=== PATIENT | male | born 1955 | race Caucasian/White ===

== ENCOUNTER 2018-10-19 08:31 | Emergency (ER) | payer OTHER ==
[2018-10-19] MEDS ORDERED: cefTRIAXone\\ROCEPHIN 1 GM VIAL ONE (09:19)
[2018-10-19] MEDS ORDERED: Lidocaine 1% PF 5 ML VIAL ONE (09:19)
--- NOTE | 2018-10-19 09:25 | RAD ---
EXAM: CHEST TWO VIEWS: History: Cough. FINDINGS: 0.7 cm diameter somewhat poorly defined nodular density demonstrated over the lower mid right lung zo ne seen on the PA view only. Minimal patchy parenchymal changes seen in the retrocardiac region and l eft lower lobe, evidence for left lower lobe pneumonia. Old granulomatous disease. Heart size is norm al. IMPRESSION: Evidence for patchy left lower lobe pneumonia. Poorly defined 0.7 cm diameter nodular density seen in the right mid lower lung zone. Non-emergent follow up chest CT scan in this regard might be of benef it. Code Lung Nodule
== END 2018-10-19 09:54 | disposition home or self-care (01) ==
LOC: SCSER 08:31
DX: J18.1 Lobar pneumonia, unspecified organism (principal); R91.1 Solitary pulmonary nodule; E11.9 Type 2 diabetes mellitus without complications; I10 Essential (primary) hypertension
CPT/HCPCS: 71046; 93005; 94760; 96372; J0696; J2001

== ENCOUNTER 2019-11-24 06:33 | Outpatient (CLI) | payer OTHER ==
[2019-11-24 14:14] LABS: INR-International Normal Ratio 2.7; Prothrombin Time 28.7 sec (12.0-14.7)
[2019-11-24 14:22] LABS: Hemoglobin 14.2 g/dL (14.0-18.0); Mean Corpuscular Hemoglobin 30.3 pg (27.0-31.0); Mean Corpuscular Volume 89.2 fL (78.0-98.0); Platelet Count 251 thou/uL (130-400); RBC Distribution Width 11.4 % (11.5-14.5); Red Blood Cell (RBC) Count 4.68 mill/uL (4.70-6.10); White Blood Cell (WBC) Count 6.9 thou/uL (4.8-10.8)
[2019-11-24 14:44] LABS: Anion Gap 13 mmol/L (10-20); BUN (Urea Nitrogen) 19 mg/dL (8.4-25.7); Calc. Creatinine Clearance 0 mL/min (70-130); Calcium 8.9 mg/dL (7.8-10.44); Carbon Dioxide 22 mmol/L (23-31); Chloride 107 mmol/L (98-107); Estimated GFR-MDRD 54; Glucose 127 mg/dL (80-115); Sodium 138 mmol/L (136-145)
[2019-11-25 14:25] LABS: SARS-CoV-2 MS2 Positive; SARS-CoV-2 N Gene Negative; SARS-CoV-2 S Gene Negative; SARS-CoV-2 orf1ab Negative
== END 2019-11-24 06:34 | disposition home or self-care (01) ==
LOC: LABBT 06:33
PROVIDERS: ATTEND Internal Medicine Cardiovascular Disease
DX: Z01.812 Encounter for preprocedural laboratory examination (principal); Z11.59 Encounter for screening for other viral diseases; I48.91 Unspecified atrial fibrillation; I51.9 Heart disease, unspecified; Z79.01 Long term (current) use of anticoagulants
CPT/HCPCS: 80048; 85027; 85610; 85730; 87635; U0003

== ENCOUNTER 2019-11-28 08:06 | Observation (INO) | payer OTHER ==
[2019-11-23 10:38] VITALS: BMI 27.7
[2019-11-28] MEDS ORDERED: Heparin 10,000 UNITS/1 ML VIAL ONE ×2 (10:37→14:26)
[2019-11-28] MEDS ORDERED: Fentanyl 100 MCG/2 ML VIAL ONE ×2 (10:38→11:20)
[2019-11-28] MEDS ORDERED: Protamine Sulfate 50 MG/5 ML VIAL ONE ×3 (10:48→15:03)
[2019-11-28] MEDS ORDERED: Phenylephrine 10 MG/ML VIAL ONE (11:21)
[2019-11-28] MEDS ORDERED: Glycopyrrolate 0.2 MG/ML 5 ML SYRINGE ONE (12:09)
[2019-11-28] MEDS ORDERED: Lidocaine 1% PF 5 ML VIAL ONE (12:09)
[2019-11-28] MEDS ORDERED: PROPOFOL 200 MG/20 ML VIAL ONE (12:09)
[2019-11-28] MEDS ORDERED: Rocuronium Bromide 10 MG/ML (10ML VIAL) ONE (12:09)
[2019-11-28] MEDS ORDERED: Isoproterenol 0.2 MG/1 ML AMP ONE (12:21)
[2019-11-28] MEDS ORDERED: Heparin 25,000 units/D5W 500 ML ONE (13:32)
[2019-11-28] MEDS ORDERED: Ketorolac Tromethamine 30 MG/ML VIAL IVP PRN (15:26)
[2019-11-28] MEDS ORDERED: Lisinopril 10 MG TAB PO SCH (15:30)
[2019-11-28] MEDS ORDERED: Ketorolac Tromethamine 30 MG/ML VIAL ONE (15:33)
[2019-11-28] MEDS ORDERED: Ondansetron PF 4 MG/2 ML Vial ONE (15:33)
[2019-11-28] MEDS ORDERED: Ondansetron HCl/PF 4 MG/2 ML Vial IVP PRN (15:52)
[2019-11-28] MEDS ORDERED: Promethazine HCl 25 MG/ML VIAL IM PRN (15:52)
[2019-11-28] MEDS ORDERED: Promethazine HCl 25 MG/ML VIAL SLOW IVP PRN (15:52)
--- NOTE | 2019-11-28 17:11 | OP ---
DATE OF PROCEDURE: 11/28/2019 PROCEDURES PERFORMED: Electrophysiology study and radiofrequency ablation. REFERRING PHYSICIANS: Dr. Ortega, primary care physician, as well as the primary terrazzo polisher, Dr. Kelli Daily. REASON FOR PROCEDURE: Mr. Stewart is a 64-year-old man with history of paroxysmal atrial fibrillation with suppression with flecainide, requiring increasing dosages and despite has recurrences. He has increasing bradycardia with increased flecainide. Here for pulmonary venous isolation procedure. The patient has been well anticoagulated with Xarelto over a month. DESCRIPTION OF PROCEDURE: The patient received general anesthesia by Anesthesia specialist. The left and right femoral venous area was prepped, draped, and accessed using a multipurpose needle under ultrasound guidance. On the left side, an 11-Yakut sheath was used to advance an intracardiac echocardiogram probe, which in turn used to monitor transseptal procedure, the catheter manipulation and pericardial space throughout the case. Also on the left side, a Preface sheath was used to advance a 20-pole Duo-Deca catheter into the right atrium and CS position. On the right side, initially two 8-Yakut short sheaths were introduced, through which a ThermoCool SFST catheter was advanced to the right atrium and 3D map of the right atrium was obtained, delineating the His bundle and CS positions. Following that, IV heparin was initiated with a bolus and drip fashion, which were adjusted periodically to keep ACT over 350. The short sheath from the right femoral vein was exchanged to two SL1 transseptal sheaths, which were used to perform transseptal puncture x2 with ultrasound guidance with the help for powered Ware needle. Through the SL1 sheaths, a ThermoCool SFST ablation catheter as well as 20-pole Lasso catheter advanced to the left atrium. 3D map of the left atrium was obtained. Left superior and inferior veins, right superior and inferior veins were noted and they were isolated with a standard antral isolation technique. Also, superior and inferior ablation lines were drawn to isolate the posterior wall. Throughout the posterior wall harding, special attention was paid to the esophageal temperatures to avoid excessive heating and any mild heating was met with extra high-flow irrigation at that spot. At the end of the case, whole these structures were isolated. The catheter advanced into the LV and ventricular pacing was performed to establish VA Wenckebach. It was 580 milliseconds. Antegrade Wenckebach was 360 milliseconds. The baseline cycle length was 766 milliseconds, WV 148 milliseconds, QRS 114, milliseconds QT 390 milliseconds, AH 95 milliseconds, HV 48 milliseconds noted. The AV charlie ERP was milliseconds with no definite dual AV charlie physiology was observed. Right bundle aberration was seen with rapid atrial pacing and extrasystole. No evidence of accessory pathway is noted. Burst atrial pacing initially did not induce arrhythmias, but during the Isuprel washout, we were noticing frequent PVCs, which retrograde conducted the atrium and on occasion initiated atrial fibrillation. The patient was cardioverted from atrial fibrillation to sinus rhythm. The Isuprel was used for 20 mcg for 10 minutes and any reconnection in the left and right pulmonary veins and posterior wall was re-ablated. At this point, the catheter was removed from the left atrium and IV heparin was stopped and later reversed with protamine. The long sheaths were exchanged for short sheaths and Vascade closure device was used to obtain hemostasis on both side femoral veins. The patient tolerated procedure well. No complications noted. CONCLUSION: 1. Successful isolation of all 4 pulmonary veins and posterior wall. 2. Normal AV charlie and His-Purkinje function seen without evidence of dual AV charlie physiology or accessory pathways. 3. Right bundle aberration noted at high atrial pacing rates. 4. Frequent monomorphic PVCs, which were right bundle and left inferior axis morphology seen, which conducted back to the atrium and on occasion initiated atrial fibrillation. 5. Abnormal sinus charlie function with marked bradycardia in the beginning of the case. PLAN: Monitor for recurrent arrhythmias. Consider resuming flecainide. Consider pacing therapy and PVC ablation if recurrent atrial fibrillation is seen. Resume oral anticoagulation. Job ID: [id number] MTDD
[2019-11-28] MEDS: Sucralfate 1 GM TAB PO SCH (18:07)
[2019-11-28] MEDS: metFORMIN 500 MG TAB PO SCH (18:07)
[2019-11-28] MEDS: Flecainide 50 MG TAB PO SCH (20:29)
[2019-11-28] MEDS ORDERED: Atorvastatin Calcium 40 MG TAB PO SCH (21:00)
[2019-11-29] MEDS: Sucralfate 1 GM TAB PO SCH ×2 (00:40→05:28)
[2019-11-29] MEDS: metFORMIN 500 MG TAB PO SCH (08:41)
[2019-11-29 08:42] VITALS: BP 116/63
[2019-11-29] MEDS: Flecainide 50 MG TAB PO SCH (08:42)
[2019-11-29 08:47] VITALS: TEMP 98.3
[2019-11-29] MEDS ORDERED: Prevnar 13-Val Conj/PF 0.5 ML SYRINGE IM ONE (09:00)
[2019-11-29] MEDS ORDERED: Amlodipine 10 MG TAB PO SCH (09:00)
--- NOTE | 2019-11-29 12:39 | PDOC.FMACP ---
Advance Care Planning - Problem (1) Atrial fibrillation Status: Acute Code(s): I48.91 - UNSPECIFIED ATRIAL FIBRILLATION (2) Palliative care encounter Status: Acute Code(s): Z51.5 - ENCOUNTER FOR PALLIATIVE CARE (3) Adequate anticoagulation on anticoagulant therapy Status: Acute Code(s): Z79.01 - PRISON (CURRENT) USE OF ANTICOAGULANTS - Note Participants: patient, family, palliative care Summary: Palliative Care introduced Advanced Care Planning, patient was allowed an opportunity to decline. The diagnosis, prognosis and goals of care were discussed. Appropriate forms and documentation to accomplish the goals of care were discussed. All questions were answered. Completed MPOA, patient Gaby was listed as primary and daughter Antonina as secondary. Provided documents in relation to Directive to Physician. Continue with aggressive therapies. Time Spent (mins): 20
--- NOTE | 2019-12-01 07:48 | EKG ---
Test Reason : PREOP Blood Pressure : / mmHG Vent. Rate : 050 BPM Atrial Rate : 050 BPM P-R Int : 180 ms QRS Dur : 150 ms QT Int : 474 ms P-R-T Axes : 057 -58 014 degrees QTc Int : 432 ms Sinus bradycardia with occasional Premature ventricular complexes Right bundle branch block Left anterior fascicular block Bifascicular block Abnormal ECG When compared with ECG of 19-OCT-2018 08:39, Premature ventricular complexes are now Present Vent. rate has decreased BY 28 BPM T wave inversion no longer evident in Anterior leads QT has shortened Confirmed by DR. Dk JEAN-BAPTISTE ([id number]) on 12/01/2019 7:47:50 AM Referred By: [facility] Confirmed By:DR. Dk JEAN-BAPTISTE
--- NOTE | 2019-12-01 07:53 | EKG ---
Test Reason : Blood Pressure : / mmHG Vent. Rate : 083 BPM Atrial Rate : 091 BPM P-R Int : 000 ms QRS Dur : 148 ms QT Int : 420 ms P-R-T Axes : 000 -59 019 degrees QTc Int : 493 ms Atrial fibrillation with premature ventricular or aberrantly conducted complexes Right bundle branch block Left anterior fascicular block Bifascicular block Abnormal ECG When compared with ECG of 28-NOV-2019 08:56, (Unconfirmed) Atrial fibrillation has replaced Sinus rhythm Vent. rate has increased BY 33 BPM QT has lengthened Confirmed by DR. Dk JEAN-BAPTISTE ([id number]) on 12/01/2019 7:52:50 AM Referred By: [facility] Confirmed By:DR. Dk JEAN-BAPTISTE
== END 2019-11-29 11:11 | disposition home or self-care (01) ==
LOC: CCL 08:06 → 2NO 15:30
PROVIDERS: ADMIT Internal Medicine Cardiovascular Disease; ATTEND Internal Medicine Cardiovascular Disease
PROC: 4A023FZ Measurement of Cardiac Rhythm, Percutaneous Approach (ICD-10-PCS; principal; 2019-11-29)
PROC: 4A0234Z Measurement of Cardiac Electrical Activity, Percutaneous Approach (ICD-10-PCS; 2019-11-29)
DX: I48.0 Paroxysmal atrial fibrillation (principal); E11.9 Type 2 diabetes mellitus without complications; E78.2 Mixed hyperlipidemia; I10 Essential (primary) hypertension; Z79.01 Long term (current) use of anticoagulants; Z79.899 Other long term (current) drug therapy; Z88.0 Allergy status to penicillin
CPT/HCPCS: 36416; 76942; 85347; 92960; 93005; 93010; 93613; 93622; 93623; 93656; 93662; C1732; C1759; C1884; G0378; J1642; J1644; J1885; J2001; J2370; J2405; J2704; J2720; J3010

== ENCOUNTER 2020-05-23 09:56 | Outpatient (CLI) | payer OTHER ==
--- NOTE | 2020-05-23 12:43 | BD ---
BONE DENSITOMETRY USING DEXA: Date: 05/23/2020 HISTORY: Postmenopausal screening for osteoporosis. FINDINGS: Lumbar Spine: BMD (g/cm2) L1 0.971 T-Score: -0.9 Z-Score: -0.2 L2 0.939 T-Score: -1.4 Z-Score: -0.6 L3 1.078 T-Score: -0.2 Z-Score: 0.6 L4 0.964 T-Score: -1.1 Z-Score: -0.3 L1-L4 0.991 T-Score: -0.9 Z-Score: -0.1 Femoral Neck: 0.746 T-Score: -1.4 Z-Score: -0.3 Total Femur: 0.906 T-Score: -0.8 Z-Score: -0.3 The 10 year fracture risk for a major osteoporotic fracture is 12% and for a hip fracture is 1.8%. IMPRESSION: Osteopenia. POS: AH
== END 2020-05-23 09:57 | disposition home or self-care (01) ==
LOC: BICMAMMO 09:56
PROVIDERS: ATTEND Internal Medicine
DX: Z13.820 Encounter for screening for osteoporosis (principal); M17.9 Osteoarthritis of knee, unspecified; M84.452A Pathological fracture, left femur, initial encounter for fracture; M84.453A Pathological fracture, unspecified femur, initial encounter for fracture; M85.89 Other specified disorders of bone density and structure, multiple sites
CPT/HCPCS: 77080

== ENCOUNTER 2020-09-26 09:57 | Outpatient (CLI) | payer MEDICARE ==
[2020-09-26 11:47] LABS: Hemoglobin 13.5 g/dL (13.5-17.5); Mean Corpuscular HGB CONC 34.8 g/dL (32.0-36.0); Mean Corpuscular Hemoglobin 29.9 pg (27.0-33.0); Mean Corpuscular Volume 85.8 fl (81.2-95.1); Mean Platelet Volume 10.6 fl (7.4-10.4); Platelet Count 279 10x3/uL (150-450); RBC Distribution Width 11.9 % (11.5-14.5); Red Blood Cell (RBC) Count 4.52 10x6/uL (4.32-5.72); White Blood Cell (WBC) Count 6.8 10x3/uL (3.5-10.5)
[2020-09-26 12:01] LABS: INR-International Normal Ratio 1.1; PTT 32.4 sec (22.0-33.0); Prothrombin Time 11.9 sec (9.5-12.1)
[2020-09-26 12:11] LABS: Anion Gap 15 mmol/L (10-20); BUN (Urea Nitrogen) 15 mg/dL (8.4-25.7); Calc. Creatinine Clearance 0 mL/min (70-130); Calcium 9.5 mg/dL (7.8-10.44); Carbon Dioxide 25 mmol/L (23-31); Chloride 102 mmol/L (98-107); Glucose 273 mg/dL (80-115); Potassium 4.3 mmol/L (3.5-5.1); Sodium 138 mmol/L (136-145)
[2020-09-27 02:31] LABS: SARS-CoV-2 PCR by NAA Not Detected (NotDetected)
== END 2020-09-26 09:58 | disposition home or self-care (01) ==
LOC: LABBT 09:57
PROVIDERS: ATTEND Internal Medicine Cardiovascular Disease
DX: Z01.818 Encounter for other preprocedural examination (principal); I48.91 Unspecified atrial fibrillation; I49.3 Ventricular premature depolarization; Z20.822 Contact with and (suspected) exposure to COVID-19
CPT/HCPCS: 80048; 85027; 85610; 85730; U0003; U0005; 87635

== ENCOUNTER 2020-10-01 05:47 | Observation (INO) | payer MEDICARE ==
[2020-10-01] MEDS ORDERED: Isoproterenol 0.2 MG/1 ML AMP ONE ×2 (06:34→08:34)
[2020-10-01] MEDS ORDERED: Lidocaine 1% (PF) 30 ML VIAL ONE (06:41)
[2020-10-01] MEDS ORDERED: Heparin 10,000 UNITS/ 10 ML VIAL ONE ×3 (06:41→09:52)
[2020-10-01] MEDS ORDERED: Fentanyl 100 MCG/2 ML VIAL ONE ×2 (06:53→09:53)
[2020-10-01] MEDS ORDERED: Vecuronium 10 MG VIAL ONE (07:47)
[2020-10-01] MEDS ORDERED: Ondansetron PF 4 MG/2 ML Vial ONE (07:47)
[2020-10-01] MEDS ORDERED: Rocuronium Bromide 10 MG/ML (10ML VIAL) ONE (07:47)
[2020-10-01] MEDS ORDERED: Dexamethasone 20 MG/5 ML VIAL ONE (07:47)
[2020-10-01] MEDS ORDERED: PHENYLEPHRINE-NS 100 MCG/ML 10 ML SYRINGE ONE (07:47)
[2020-10-01] MEDS ORDERED: PROPOFOL 200 MG/20 ML VIAL ONE (07:47)
[2020-10-01] MEDS ORDERED: Glycopyrrolate 0.2 MG/ML 5 ML SYRINGE ONE (07:47)
[2020-10-01] MEDS ORDERED: Lidocaine 1% PF 5 ML VIAL ONE (07:47)
[2020-10-01] MEDS ORDERED: Heparin 25,000 units/D5W 500 ML ONE (07:51)
[2020-10-01] MEDS ORDERED: Midazolam HCl 2 mg/2 ml Vial ONE (08:22)
[2020-10-01] MEDS ORDERED: Promethazine HCl 25 MG/ML VIAL SLOW IVP PRN ×2 (08:51→12:49)
[2020-10-01] MEDS ORDERED: Meperidine HCl/PF 25 MG/ML VIAL SLOW IVP PRN (08:51)
[2020-10-01] MEDS ORDERED: Promethazine HCl 25 MG/ML VIAL IM PRN ×2 (08:51→12:49)
[2020-10-01] MEDS ORDERED: Ondansetron HCl/PF 4 MG/2 ML Vial IVP PRN ×2 (08:51→12:49)
[2020-10-01] MEDS ORDERED: Protamine Sulfate 50 MG/5 ML VIAL ONE (12:05)
[2020-10-01] MEDS ORDERED: Ketorolac Tromethamine 30 MG/ML VIAL IVP PRN (12:40)
[2020-10-01] MEDS ORDERED: Ketorolac Tromethamine 30 MG/ML VIAL ONE (14:11)
[2020-10-01 16:42] VITALS: BMI 28.6
[2020-10-01] MEDS: metFORMIN 500 MG TAB PO SCH (17:25)
[2020-10-01] MEDS: Lisinopril 20 MG TAB PO SCH (20:21)
[2020-10-01] MEDS: Cepastat Lozenges 1 LOZ PO PRN (20:21)
[2020-10-01] MEDS ORDERED: Atorvastatin Calcium 40 MG TAB PO SCH (21:00)
[2020-10-01] MEDS ORDERED: Melatonin 3 MG TAB PO SCH (23:59)
[2020-10-02] MEDS: Cepastat Lozenges 1 LOZ PO PRN (00:13)
[2020-10-02 07:32] VITALS: BP 127/55; TEMP 97.7
[2020-10-02] MEDS: Lisinopril 20 MG TAB PO SCH (08:22)
[2020-10-02] MEDS: metFORMIN 500 MG TAB PO SCH (08:22)
[2020-10-02] MEDS ORDERED: Amlodipine 10 MG TAB PO SCH (09:00)
[2020-10-02] MEDS ORDERED: Rivaroxaban 10 MG TAB PO SCH (09:00)
== END 2020-10-02 10:47 | disposition home or self-care (01) ==
LOC: CCL 05:47 → 2SE 06:45
PROVIDERS: ADMIT Internal Medicine Cardiovascular Disease; ATTEND Internal Medicine Cardiovascular Disease
PROC: 02583ZZ Destruction of Conduction Mechanism, Percutaneous Approach (ICD-10-PCS; principal; 2020-10-01)
PROC: 02K83ZZ Map Conduction Mechanism, Percutaneous Approach (ICD-10-PCS; 2020-10-01)
PROC: 4A023FZ Measurement of Cardiac Rhythm, Percutaneous Approach (ICD-10-PCS; 2020-10-01)
PROC: 4A0234Z Measurement of Cardiac Electrical Activity, Percutaneous Approach (ICD-10-PCS; 2020-10-01)
DX: I48.0 Paroxysmal atrial fibrillation (principal); I49.3 Ventricular premature depolarization; I45.3 Trifascicular block; I07.1 Rheumatic tricuspid insufficiency; I10 Essential (primary) hypertension; E78.5 Hyperlipidemia, unspecified; Z79.01 Long term (current) use of anticoagulants; Z79.84 Long term (current) use of oral hypoglycemic drugs; Z79.899 Other long term (current) drug therapy; Z88.0 Allergy status to penicillin
CPT/HCPCS: 76942; 85347 ×2; 92960; 93005 ×2; 93613; 93623; 93655; 93656; 93662; 94760 ×2; C1730; C1732 ×2; C1759; C1884; G0378 ×2; 93010; J1100; J1644; J1885; J2001; J2250; J2405; J2704; J2720; J3010